=== PATIENT | female | born 1965 | race African-American/Black ===

== ENCOUNTER 2021-12-13 11:02 | Inpatient (IN) | payer BC, OTHER ==
[~2021-12-13] VITALS: Ht 165.1 cm; Wt 61.4 kg
[2021-12-13] MEDS ORDERED: ONDANSETRON PF 4 MG/2 ML VIAL. IVP ONE (14:00)
[2021-12-13] MEDS ORDERED: FAMOTIDINE 20 MG/2 ML VIAL IVP ONE (14:00)
[2021-12-13] MEDS ORDERED: IV NORMAL SALINE 1000ML BAG 1,000 ML IV ONE ×2 (14:00→20:15)
[2021-12-13] MEDS ORDERED: IOHEXOL 300 MG/ML 100ML VIAL. IV ONE (14:15)
[2021-12-13] MEDS: fentaNYL PF VIAL 100 MCG/2 ML VIAL IV PRN ×2 (14:27→16:00)
[2021-12-13] MEDS ORDERED: CONTRAST GIVEN. MC PRN (14:30)
[2021-12-13 14:36] LABS: BASO # 0.1 x10^3/uL (0.0-0.2); BASO % 0 % (0-3); EOS % 0 % (0-3); HEMATOCRIT 37.5 % (36.0-47.0); HEMOGLOBIN 12.5 g/dL (12.0-15.5); LYMPH # 0.5 x10^3/uL (1.0-4.8); LYMPH % 3 % (24-48); MEAN CORPUSCULAR HEMOGLOBIN 28 pg (25-35); MEAN CORPUSCULAR HGB CONC 33 g/dL (31-37); MEAN CORPUSCULAR VOLUME 84 fL (79-100); MONO # 1.4 x10^3/uL (0.0-1.1); MONO % 7 % (0-9); NEUT # 17.2 x10^3/uL (1.8-7.7); NEUT % 90 % (31-73); PLATELET COUNT 125 x10^3/uL (140-400); RED BLOOD COUNT 4.44 x10^6/uL (3.50-5.40); RED CELL DISTRIBUTION WIDTH 13.5 % (11.5-14.5); WHITE BLOOD COUNT 19.1 x10^3/uL (4.0-11.0)
[2021-12-13 14:43] LABS: BARBITURATES NEG (NEG); BENZODIAZEPINES NEG (NEG); CANNABINOIDS POS (NEG); COCAINE NEG (NEG); METHADONE NEG (NEG); OPIATES NEG (NEG); PHENCYCLIDINE NEG (NEG)
[2021-12-13 14:44] LABS: AMPHETAMINE/METHAMPHETAMINE NEG (NEG)
[2021-12-13 14:48] LABS: BACTERIA,URINE MODERATE /HPF (0-FEW); WBC,URINE TNTC /HPF (0-4)
[2021-12-13 14:50] LABS: INFLUENZA A PATIENT NEGATIVE (NEGATIVE); INFLUENZA B PATIENT NEGATIVE (NEGATIVE)
[2021-12-13 15:14] LABS: % BANDS 11 % (0-9); % LYMPHS 2 % (24-48); % MONOS 4 % (0-10); % SEGS 83 % (35-66)
[2021-12-13 15:15] LABS: PLT ESTIMATE DECREASED (ADEQUATE); TOXIC VACUOLATION SLIGHT
[2021-12-13 15:33] LABS: CALCIUM 9.5 mg/dL (8.5-10.1); CREATININE 1.1 mg/dL (0.6-1.0); GFR 62.2; POTASSIUM 3.2 mmol/L (3.5-5.1)
[2021-12-13 15:42] LABS: ALBUMIN 3.5 g/dL (3.4-5.0); ALBUMIN/GLOBULIN RATIO 0.7 (1.0-1.7); MAGNESIUM 1.7 mg/dL (1.8-2.4); TOTAL BILIRUBIN 1.5 mg/dL (0.2-1.0); TOTAL PROTEIN 8.2 g/dL (6.4-8.2)
--- NOTE | 2021-12-13 16:21 | RAD ---
EXAMINATION: CT ABDOMEN+PELVIS W CLINICAL HISTORY: n/v/d/abd pain. TECHNIQUE: CT of the abdomen and pelvis was performed using standard technique, scanning from just ab ove the dome of the diaphragm to the symphysis pubis following administration of intravenous contrast . CT Dose Reduction Employed: One or more of the following individualized dose reduction techniques wer e utilized for this examination: 1. Automated exposure control 2. Adjustment of the mA and/or kV ac cording to patient size 3. Use of iterative reconstruction technique. COMPARISON: None FINDINGS: Bibasilar subsegmental atelectasis and/or scarring. Bibasilar old calcified granulomas. Subcentimeter subcapsular hypoenhancing lesion in the anterior medial left hepatic lobe, too small ad equately characterize. Multiple calcifications in the spleen likely related to old granulomatous dise ase. 2.5 cm right adrenal lesion, incompletely evaluated. Gallbladder and pancreas unremarkable. Left renal edema with asymmetric hypoenhancement in the mid and lower poles of the kidney and mild pe rinephric stranding, suspicious for pyelonephritis. Subcentimeter hypoenhancing lesion in the lower p ole the left kidney, too small to adequately characterize. Right kidney unremarkable. Moderately filled urinary bladder. Uterus and ovaries unremarkable on limited evaluation. Questionable poorly visualized appendix at upper limits of normal in size measuring 7 mm in diameter. Ill-defined mesenteric stranding present on the right lower quadrant. Acute appendicitis is thought to be unlikely but cannot be excluded. No bowel dilation or definite wall thickening. Arterial atherosclerotic calcification without aneurysm. Degenerative disc disease greatest at T11-T12 and L5-S1. Multiple nodular densities in the bilateral breasts, the largest of which is partially visualized in the medial right breast and measures up to 2 .1 cm. IMPRESSION: Findings suspicious for left-sided pyelonephritis, correlate clinically. Concomitant acute appendicitis considered unlikely but not excluded. 2.5 cm right adrenal lesion, possibly a benign adenoma but incompletely evaluated. Nonemergent/outpat ient adrenal protocol CT/MRI abdomen with and without intravenous contrast could be obtained for furt her evaluation as indicated. Multiple bilateral breast masses as described, recommend comparison with prior mammograms if availabl e or follow-up bilateral diagnostic mammogram if the patient has not received a screening mammogram i n the past year. Electronically signed by: Juan Horan DO (12/13/2021 4:19 PM) [facility]
[2021-12-13] MEDS ORDERED: cefTRIAXone IV Push 1 GM VIAL. IVP ONE (16:30)
--- NOTE | 2021-12-13 19:09 | PDOC1 ---
History and Physical Date of Admission Date of Admission DATE: 12/13/21 TIME: 19:08 Identification/Chief Complaint Chief Complaint Abdominal pain Source Source: Patient History of Present Illness History of Present Illness Ms Stout is a 56yo female with no PMHx who comes to ED c/o left sided abdominal pain, nausea, vomiting and diarrhea. She has had cramping and sharp left flank pain radiating occasionally into her groin for the past 2 days. She has associated nausea and over the past 24 hours had 2 bouts of emesis and has been having diarrhea as well. She c/o dysuria and subjective fever/chills. Labs with WBC 19.1, Hb 12.5, platelets 125, NA 136, K3.2, BUN 13, CR 1.1, glucose 125, calcium 9.5, magnesium 1.7, bilirubin 1.5, AST 25, ALT 22, alkaline phosphatase 93, albumin 3.5, lipase 21, high-sensitivity troponins were 11 and 14, NT proBNP 629, urinalysis large leuk esterase, a UDS positive for cannabinoids, rapid COVID-19 negative, rapid influenza negative. CT abdomen pelvis concerning for left-sided pyelonephritis and 2.5 cm right adrenal lesion Noted as well as multiple bilateral breast masses. Past Medical History Cardiovascular: No pertinent hx Past Surgical History Past Surgical History: No pertinent history Family History Family History: High Cholestrol Social History Smoke: Quit ALCOHOL: none Drugs: Marijuana Current Medications Current Medications Current Medications Sodium Chloride 1,000 ml @ 1,000 mls/hr 1X ONCE IV Last administered on 12/13/21at 14:26; Start 12/13/21 at 14:00; Stop 12/13/21 at 14:59; Status DC Ondansetron HCl (Zofran) 4 mg 1X ONCE IVP Last administered on 12/13/21at 14:26; Start 12/13/21 at 14:00; Stop 12/13/21 at 14:18; Status DC Famotidine (Pepcid Vial) 20 mg 1X ONCE IVP Last administered on 12/13/21at 14:26; Start 12/13/21 at 14:00; Stop 12/13/21 at 14:18; Status DC Fentanyl Citrate (Fentanyl 2ml Vial) 50 mcg PRN Q15MIN PRN IV PAIN GREATER THAN 3/10 Last administered on 12/13/21at 16:00; Start 12/13/21 at 14:00; Stop 12/14/21 at 13:59 Iohexol (Omnipaque 300 Mg/ml) 75 ml 1X ONCE IV Last administered on 12/13/21at 15:50; Start 12/13/21 at 14:15; Stop 12/13/21 at 14:18; Status DC Info (CONTRAST GIVEN -- Rx MONITORING) 1 each PRN DAILY PRN MC SEE COMMENTS; Start 12/13/21 at 14:30; Stop 12/15/21 at 14:29 Ceftriaxone Sodium (Rocephin) 1 gm 1X ONCE IVP Last administered on 12/13/21at 17:01; Start 12/13/21 at 16:30; Stop 12/13/21 at 16:31; Status DC Magnesium Sulfate 50 ml @ 25 mls/hr 1X ONCE IV ; Start 12/13/21 at 19:30; Stop 12/13/21 at 21:29 Potassium Chloride/Dextrose/ Sod Cl 1,000 ml @ 125 mls/hr Q8H IV ; Start 12/13/21 at 19:30; Stop 12/14/21 at 03:29 Allergies Allergies: Coded Allergies: No Known Drug Allergies (Unverified , 12/13/21) ROS General: YES: Chills, Fatigue, Malaise, Appetite; No: Night Sweats, Other PSYCHOLOGICAL ROS: No: Anxiety, Behavioral Disorder, Concentration difficultie, Decreased libido, Depression, Disorientation, Hallucinations, Hostility, Irritablity, Memory difficulties, Mood Swings, Obsessive thoughts, Physical abus e, Sexual abuse, Sleep disturbances, Suicidal ideation, Other Eyes: No Blurry vision, No Decreased vision, No Double vision, No Dry eyes, No Excessive tearing, No Eye Pain, No Itchy Eyes, No Loss of vision, No Photophobia, No Scotomata, No Uses contacts, No Uses glasses, No Other HEENT: No: Heacaches, Visual Changes, Hearing change, Nasal congestion, Nasal discharge, Oral lesions, Sinus pain, Sore Throat, Epistaxis, Sneezing, Snoring, Tinnitus, Vertigo, Vocal changes, Other ALLERGY AND IMMUNOLOGY: No: Hives, Insect Bite Sensitivity, Itchy/Watery Eyes, Nasal Congestion, Post Nasal Drip, Seasonal Allergies, Other Hematological and Lymphatic: No: Bleeding Problems, Blood Clots, Blood Transfusions, Brusing, Night Sweats, Pallor, Swollen Lymph Nodes, Other ENDOCRINE: No: Breast Changes, Galactorrhea, Hair Pattern Changes, Hot Flashes, Malaise/lethargy, Mood Swings, Palpitations, Polydipsia/polyuria, Skin Changes, Temperature Intolerance, Unexpected Weight Changes, Other Breast: No New/Changing Breast Lumps, No Nipple changes, No Nipple discharge, No Other Respiratory: No: Cough, Hemoptysis, Orthopnea, Pleuritic Pain, Shortness of breath, SOB with excertion, Sputum Changes, Stridor, Tachypnea, Wheezing, Other Cardiovascular: No Chest Pain, No Palpitations, No Orthopnea, No Paroxysmal Noc. Dyspnea, No Edema, No Lt Headedness, No Other Gastrointestinal: Yes Nausea, Yes Vomiting, Yes Abdominal Pain, Yes Diarrhea Genitourinary: YES Dysuria, YES Frequency, YES Urgency, YES Flank Pain; No Incontinence, No Hematuria, No Retention, No Discharge, No Pain, No Other, No , No , No , No , No , No , No Musculoskeletal: No Gait Disturbance, No Joint Pain, No Joint Stiffness, No Joint Swelling, No Muscle Pain, No Muscular Weakness, No Pain In:, No Swelling In:, No Other Neurological: No Behavorial Changes, No Bowel/Bladder ControlChng, No Confusion, No Dizziness, No Gait Disturbance, No Headaches, No Impaired Coord/balance, No Memory Loss, No Numbness/Tingling, No Seizures, No Speech Problems, No Tremors, No Visual Changes, No Weakness, No Other Skin: No Dry Skin, No Eczema, No Hair Changes, No Lumps, No Mole Changes, No Mottling, No Nail Changes, No Pruritus, No Rash, No Skin Lesion Changes, No Other, No Acne Physical Exam General: Alert, Oriented X3, Cooperative, moderate distress HEENT: Atraumatic, PERRLA, EOMI, Mucous membr. moist/pink Lungs: Clear to auscultation, Normal air movement Heart: S1S2, RRR, no thrills, no rubs, no gallops, no murmurs Abdomen: Normal bowel sounds, Other (left flank tenderness) Rectal Exam: not examined Extremities: No clubbing, No cyanosis, No edema, Normal pulses, No tenderness/swelling Skin: No rashes, No breakdown, No significant lesion Neuro: Normal gait, Normal speech, Strength at 5/5 X4 ext, Normal tone, Sensation intact, Cranial nerves 3-12 NL, Reflexes 2+ Psych/Mental Status: Mental status NL, Mood NL Vitals Vitals Vital Signs Date Time Temp Pulse Resp B/P (MAP) Pulse Ox O2 Delivery O2 Flow Rate FiO2 12/13/21 16:30 20 96 Room Air 12/13/21 14:55 94 132/82 (99) 12/13/21 13:18 99.2 99.2 Labs Labs Laboratory Tests Test 12/13/21 14:10 12/13/21 14:16 12/13/21 15:09 12/13/21 18:01 Urine Collection Type Unknown Urine Color (Auto) Light orange Urine Turbidity Turbid Urine pH (Auto) 6.0 (<5.0-8.0) Urine Specific [place] 1.014 (1.000-1.030) Urine Protein (Auto) 100 mg/dL (Negative) Urine Glucose (Auto)(UA) Negative mg/dL (Negative) Urine Ketones (Auto) 10 mg/dL (Negative) Urine Blood (Auto) Moderate (Negative) Urine Nitrite Negative (Negative) Urine Bilirubin (Auto) Negative (Negative) Urine Urobilinogen (Auto) 3 mg/dL (Normal) Urine Leukocyte Esterase (Auto) Large (Negative) Urine RBC 11-20 /HPF (0-2) Urine WBC Tntc /HPF (0-4) Urine Squamous Epithelial Cells Few /LPF Urine Bacteria Moderate /HPF (0-FEW) Urine Opiates Screen Neg (NEG) Urine Methadone Screen Neg (NEG) Urine Barbiturates Neg (NEG) Urine Phencyclidine Screen Neg (NEG) Urine Amphetamine/Methamphetamine Neg (NEG) Urine Benzodiazepines Screen Neg (NEG) Urine Cocaine Screen Neg (NEG) Urine Cannabinoids Screen Pos (NEG) Urine Ethyl Alcohol Neg (NEG) Influenza Type A Antigen Negative (NEGATIVE) Influenza Type B Antigen Negative (NEGATIVE) SARS-CoV-2 Antigen (Rapid) Negative (NEGATIVE) White Blood Count 19.1 x10^3/uL (4.0-11.0) Red Blood Count 4.44 x10^6/uL (3.50-5.40) Hemoglobin 12.5 g/dL (12.0-15.5) Hematocrit 37.5 % (36.0-47.0) Mean Corpuscular Volume 84 fL (79-100) Mean Corpuscular Hemoglobin 28 pg (25-35) Mean Corpuscular Hemoglobin Concent 33 g/dL (31-37) Red Cell Distribution Width 13.5 % (11.5-14.5) Platelet Count 125 x10^3/uL (140-400) Neutrophils (%) (Auto) 90 % (31-73) Lymphocytes (%) (Auto) 3 % (24-48) Monocytes (%) (Auto) 7 % (0-9) Eosinophils (%) (Auto) 0 % (0-3) Basophils (%) (Auto) 0 % (0-3) Neutrophils # (Auto) 17.2 x10^3/uL (1.8-7.7) Lymphocytes # (Auto) 0.5 x10^3/uL (1.0-4.8) Monocytes # (Auto) 1.4 x10^3/uL (0.0-1.1) Eosinophils # (Auto) 0.0 x10^3/uL (0.0-0.7) Basophils # (Auto) 0.1 x10^3/uL (0.0-0.2) Segmented Neutrophils % 83 % (35-66) Band Neutrophils % 11 % (0-9) Lymphocytes % 2 % (24-48) Monocytes % 4 % (0-10) Toxic Vacuolation Slight Platelet Estimate Decreased (ADEQUATE) Sodium Level 136 mmol/L (136-145) Potassium Level 3.2 mmol/L (3.5-5.1) Chloride Level 101 mmol/L (98-107) Carbon Dioxide Level 22 mmol/L (21-32) Anion Gap 13 (6-14) Blood Urea Nitrogen 13 mg/dL (7-20) Creatinine 1.1 mg/dL (0.6-1.0) Estimated GFR (Cockcroft-Gault) 62.2 BUN/Creatinine Ratio 12 (6-20) Glucose Level 125 mg/dL (70-99) Calcium Level 9.5 mg/dL (8.5-10.1) Magnesium Level 1.7 mg/dL (1.8-2.4) Total Bilirubin 1.5 mg/dL (0.2-1.0) Aspartate Amino Transf (AST/SGOT) 25 U/L (15-37) Alanine Aminotransferase (ALT/SGPT) 22 U/L (14-59) Alkaline Phosphatase 93 U/L (46-116) Troponin I High Sensitivity 11 ng/L (4-50) 14 ng/L (4-50) CR-Hyz-Q-Type Natriuretic Peptide 629 pg/mL (0-124) Total Protein 8.2 g/dL (6.4-8.2) Albumin 3.5 g/dL (3.4-5.0) Albumin/Globulin Ratio 0.7 (1.0-1.7) Lipase 21 U/L (73-393) Ethyl Alcohol Level < 10 mg/dL (0-10) Laboratory Tests Test 12/13/21 14:10 12/13/21 14:16 12/13/21 15:09 12/13/21 18:01 Urine Collection Type Unknown Urine Color (Auto) Light orange Urine Turbidity Turbid Urine pH (Auto) 6.0 (<5.0-8.0) Urine Specific [place] 1.014 (1.000-1.030) Urine Protein (Auto) 100 mg/dL (Negative) Urine Glucose (Auto)(UA) Negative mg/dL (Negative) Urine Ketones (Auto) 10 mg/dL (Negative) Urine Blood (Auto) Moderate (Negative) Urine Nitrite Negative (Negative) Urine Bilirubin (Auto) Negative (Negative) Urine Urobilinogen (Auto) 3 mg/dL (Normal) Urine Leukocyte Esterase (Auto) Large (Negative) Urine RBC 11-20 /HPF (0-2) Urine WBC Tntc /HPF (0-4) Urine Squamous Epithelial Cells Few /LPF Urine Bacteria Moderate /HPF (0-FEW) Urine Opiates Screen Neg (NEG) Urine Methadone Screen Neg (NEG) Urine Barbiturates Neg (NEG) Urine Phencyclidine Screen Neg (NEG) Urine Amphetamine/Methamphetamine Neg (NEG) Urine Benzodiazepines Screen Neg (NEG) Urine Cocaine Screen Neg (NEG) Urine Cannabinoids Screen Pos (NEG) Urine Ethyl Alcohol Neg (NEG) Influenza Type A Antigen Negative (NEGATIVE) Influenza Type B Antigen Negative (NEGATIVE) SARS-CoV-2 Antigen (Rapid) Negative (NEGATIVE) White Blood Count 19.1 x10^3/uL (4.0-11.0) Red Blood Count 4.44 x10^6/uL (3.50-5.40) Hemoglobin 12.5 g/dL (12.0-15.5) Hematocrit 37.5 % (36.0-47.0) Mean Corpuscular Volume 84 fL (79-100) Mean Corpuscular Hemoglobin 28 pg (25-35) Mean Corpuscular Hemoglobin Concent 33 g/dL (31-37) Red Cell Distribution Width 13.5 % (11.5-14.5) Platelet Count 125 x10^3/uL (140-400) Neutrophils (%) (Auto) 90 % (31-73) Lymphocytes (%) (Auto) 3 % (24-48) Monocytes (%) (Auto) 7 % (0-9) Eosinophils (%) (Auto) 0 % (0-3) Basophils (%) (Auto) 0 % (0-3) Neutrophils # (Auto) 17.2 x10^3/uL (1.8-7.7) Lymphocytes # (Auto) 0.5 x10^3/uL (1.0-4.8) Monocytes # (Auto) 1.4 x10^3/uL (0.0-1.1) Eosinophils # (Auto) 0.0 x10^3/uL (0.0-0.7) Basophils # (Auto) 0.1 x10^3/uL (0.0-0.2) Segmented Neutrophils % 83 % (35-66) Band Neutrophils % 11 % (0-9) Lymphocytes % 2 % (24-48) Monocytes % 4 % (0-10) Toxic Vacuolation Slight Platelet Estimate Decreased (ADEQUATE) Sodium Level 136 mmol/L (136-145) Potassium Level 3.2 mmol/L (3.5-5.1) Chloride Level 101 mmol/L (98-107) Carbon Dioxide Level 22 mmol/L (21-32) Anion Gap 13 (6-14) Blood Urea Nitrogen 13 mg/dL (7-20) Creatinine 1.1 mg/dL (0.6-1.0) Estimated GFR (Cockcroft-Gault) 62.2 BUN/Creatinine Ratio 12 (6-20) Glucose Level 125 mg/dL (70-99) Calcium Level 9.5 mg/dL (8.5-10.1) Magnesium Level 1.7 mg/dL (1.8-2.4) Total Bilirubin 1.5 mg/dL (0.2-1.0) Aspartate Amino Transf (AST/SGOT) 25 U/L (15-37) Alanine Aminotransferase (ALT/SGPT) 22 U/L (14-59) Alkaline Phosphatase 93 U/L (46-116) Troponin I High Sensitivity 11 ng/L (4-50) 14 ng/L (4-50) OD-Ukz-V-Type Natriuretic Peptide 629 pg/mL (0-124) Total Protein 8.2 g/dL (6.4-8.2) Albumin 3.5 g/dL (3.4-5.0) Albumin/Globulin Ratio 0.7 (1.0-1.7) Lipase 21 U/L (73-393) Ethyl Alcohol Level < 10 mg/dL (0-10) VTE Prophylaxis Ordered VTE Prophylaxis Devices: Yes VTE Pharmacological Prophylaxi: No Assessment/Plan Assessment/Plan Left pyelonephritis - IV rocephin, toradol, morphine for pain, aggressive IVF Sepsis - related to pyelo. empiric rocephin, IVF, trend WBC N/V/D - likely related to sepsis. no pain in right lower quadrant, does not appear to have gastroenteritis or appendicitis Hypokalemia - related to above, will replace IV Thrombocytopenia - likely sepsis related, will trend Abnormal breast masses - known outpatient, has outpatient breast ultrasound for densities FEN - Regular diet PPX - ambulatory FULL CODE Dispo - inpatient Justifications for Admission Other Justification ELAYNE MCGRAW MD December 13, 2021 19:08
[2021-12-13] MEDS ORDERED: POTASSIUM CL 20MEQ D5-0.45NACL 1,000 ML IV SCH (19:30)
[2021-12-13] MEDS ORDERED: MAGNESIUM SULFATE 2GM 50 ML IV ONE (19:30)
[2021-12-13] MEDS ORDERED: ACETAMINOPHEN 325 MG TABLET. PO PRN (20:15)
[2021-12-13] MEDS ORDERED: ONDANSETRON PF 4 MG/2 ML VIAL. IVP PRN (20:15)
[2021-12-13] MEDS ORDERED: MORPHINE SULFATE 4 MG/ML INJ. IVP PRN (20:15)
[2021-12-13 20:50] VITALS: BP 113/71
--- NOTE | 2021-12-14 01:16 | PHYS DOC ---
Past Medical History Additional Past Medical Histor: denies hx Past Surgical History: No Surgical History Additional Past Surgical Histo: denies hx Smoking Status: Former Smoker Alcohol Use: None General Adult EDM: Chief Complaint: FLU SYMPTOM HPI: HPI: Patient is a 56 year old female with no significant medical history presented to the ED today complaining of nausea, vomiting, mild left flank pain, symptoms of been going on for 3 days. Patient denies any fever but reports some body aches. Review of Systems: Review of Systems: Constitutional: Denies fever or chills. [] Eyes: Denies change in visual acuity. [] HENT: Denies nasal congestion or sore throat. [] Respiratory: Denies cough or shortness of breath. [] Cardiovascular: Denies chest pain or edema. [] GI: Reports nausea and vomiting. Denies abdominal pain, bloody stools or diarrhea. [] : Reports left flank pain Musculoskeletal: Denies back pain or joint pain. [] Integument: Denies rash. [] Neurologic: Denies headache, focal weakness or sensory changes. [] Psychiatric: Denies depression or anxiety. [] Heart Score: C/O Chest Pain: N/A Risk Factors: Risk Factors: DM, Current or recent (<one month) smoker, HTN, HLP, family history of CAD, obesity. Risk Scores: Score 0 - 3: 2.5% MACE over next 6 weeks - Discharge Home Score 4 - 6: 20.3% MACE over next 6 weeks - Admit for Clinical Observation Score 7 - 10: 72.7% MACE over next 6 weeks - Early Invasive Strategies Current Medications: Current Medications Medications (Trade) Dose Ordered Sig/Paulino Start Time Stop Time Status Last Admin Dose Admin Ceftriaxone Sodium (Rocephin) 1 gm 1X ONCE 12/13/21 16:30 12/13/21 16:31 DC 12/13/21 17:01 1 GM Famotidine (Pepcid Vial) 20 mg 1X ONCE 12/13/21 14:00 12/13/21 14:18 DC 12/13/21 14:26 20 MG Fentanyl Citrate (Fentanyl 2ml Vial) 50 mcg PRN Q15MIN PRN 12/13/21 14:00 12/14/21 13:59 12/13/21 16:00 50 MCG Info (CONTRAST GIVEN -- Rx MONITORING) 1 each PRN DAILY PRN 12/13/21 14:30 12/15/21 14:29 Iohexol (Omnipaque 300 Mg/ml) 75 ml 1X ONCE 12/13/21 14:15 12/13/21 14:18 DC 12/13/21 15:50 75 ML Magnesium Sulfate 50 ml @ 25 mls/hr 1X ONCE 12/13/21 19:30 12/13/21 21:29 DC 12/13/21 19:27 25 MLS/HR Ondansetron HCl (Zofran) 4 mg 1X ONCE 12/13/21 14:00 12/13/21 14:18 DC 12/13/21 14:26 4 MG Potassium Chloride/Dextrose/ Sod Cl 1,000 ml @ 125 mls/hr Q8H 12/13/21 19:30 12/14/21 03:29 12/13/21 19:22 125 MLS/HR Sodium Chloride 1,000 ml @ 1,000 mls/hr 1X ONCE 12/13/21 14:00 12/13/21 14:59 DC 12/13/21 14:26 1,000 MLS/HR Allergies: Allergies: Allergies Coded Allergies Type Severity Reaction Last Updated Verified No Known Drug Allergies 12/13/21 No Physical Exam: PE: Constitutional: Well developed, well nourished, no acute distress, non-toxic appearance. [] HENT: Normocephalic, atraumatic, bilateral external ears normal, oropharynx dry, chapped lips, no oral exudates, nose normal. [] Eyes: PERRLA, EOMI, conjunctiva normal, no discharge. [] Neck: Normal range of motion, no tenderness, supple, no stridor. [] Cardiovascular:Heart rate regular rhythm, no murmur [] Lungs & Thorax: Bilateral breath sounds clear to auscultation [] Abdomen: Bowel sounds normal, soft, no tenderness, no masses, no pulsatile masses. [] Skin: Warm, dry, no erythema, no rash. [] Back: No tenderness, no CVA tenderness. [] Extremities: No tenderness, no cyanosis, no clubbing, ROM intact, no edema. [] Neurologic: Alert and oriented X 3, normal motor function, normal sensory function, no focal deficits noted. [] Psychologic: Affect normal, judgement normal, mood normal. [] Current Patient Data: Labs: Laboratory Tests Test 12/13/21 14:10 12/13/21 14:16 12/13/21 15:09 12/13/21 18:01 Urine Collection Type Unknown Urine Color (Auto) Light orange Urine Turbidity Turbid Urine pH (Auto) 6.0 (<5.0-8.0) Urine Specific [place] 1.014 (1.000-1.030) Urine Protein (Auto) 100 mg/dL (Negative) Urine Glucose (Auto)(UA) Negative mg/dL (Negative) Urine Ketones (Auto) 10 mg/dL (Negative) Urine Blood (Auto) Moderate (Negative) Urine Nitrite Negative (Negative) Urine Bilirubin (Auto) Negative (Negative) Urine Urobilinogen (Auto) 3 mg/dL (Normal) Urine Leukocyte Esterase (Auto) Large (Negative) Urine RBC 11-20 /HPF (0-2) Urine WBC Tntc /HPF (0-4) Urine Squamous Epithelial Cells Few /LPF Urine Bacteria Moderate /HPF (0-FEW) Urine Opiates Screen Neg (NEG) Urine Methadone Screen Neg (NEG) Urine Barbiturates Neg (NEG) Urine Phencyclidine Screen Neg (NEG) Urine Amphetamine/Methamphetamine Neg (NEG) Urine Benzodiazepines Screen Neg (NEG) Urine Cocaine Screen Neg (NEG) Urine Cannabinoids Screen Pos (NEG) Urine Ethyl Alcohol Neg (NEG) Influenza Type A Antigen Negative (NEGATIVE) Influenza Type B Antigen Negative (NEGATIVE) SARS-CoV-2 Antigen (Rapid) Negative (NEGATIVE) White Blood Count 19.1 x10^3/uL (4.0-11.0) H Red Blood Count 4.44 x10^6/uL (3.50-5.40) Hemoglobin 12.5 g/dL (12.0-15.5) Hematocrit 37.5 % (36.0-47.0) Mean Corpuscular Volume 84 fL (79-100) Mean Corpuscular Hemoglobin 28 pg (25-35) Mean Corpuscular Hemoglobin Concent 33 g/dL (31-37) Red Cell Distribution Width 13.5 % (11.5-14.5) Platelet Count 125 x10^3/uL (140-400) L Neutrophils (%) (Auto) 90 % (31-73) H Lymphocytes (%) (Auto) 3 % (24-48) L Monocytes (%) (Auto) 7 % (0-9) Eosinophils (%) (Auto) 0 % (0-3) Basophils (%) (Auto) 0 % (0-3) Neutrophils # (Auto) 17.2 x10^3/uL (1.8-7.7) H Lymphocytes # (Auto) 0.5 x10^3/uL (1.0-4.8) L Monocytes # (Auto) 1.4 x10^3/uL (0.0-1.1) H Eosinophils # (Auto) 0.0 x10^3/uL (0.0-0.7) Basophils # (Auto) 0.1 x10^3/uL (0.0-0.2) Segmented Neutrophils % 83 % (35-66) H Band Neutrophils % 11 % (0-9) H Lymphocytes % 2 % (24-48) L Monocytes % 4 % (0-10) Toxic Vacuolation Slight Platelet Estimate Decreased (ADEQUATE) Sodium Level 136 mmol/L (136-145) Potassium Level 3.2 mmol/L (3.5-5.1) L Chloride Level 101 mmol/L (98-107) Carbon Dioxide Level 22 mmol/L (21-32) Anion Gap 13 (6-14) Blood Urea Nitrogen 13 mg/dL (7-20) Creatinine 1.1 mg/dL (0.6-1.0) H Estimated GFR (Cockcroft-Gault) 62.2 BUN/Creatinine Ratio 12 (6-20) Glucose Level 125 mg/dL (70-99) H Calcium Level 9.5 mg/dL (8.5-10.1) Magnesium Level 1.7 mg/dL (1.8-2.4) L Total Bilirubin 1.5 mg/dL (0.2-1.0) H Aspartate Amino Transferase (AST) 25 U/L (15-37) Alanine Aminotransferase (ALT) 22 U/L (14-59) Alkaline Phosphatase 93 U/L (46-116) Troponin I High Sensitivity 11 ng/L (4-50) 14 ng/L (4-50) CT-Xau-Y-Type Natriuretic Peptide 629 pg/mL (0-124) H Total Protein 8.2 g/dL (6.4-8.2) Albumin 3.5 g/dL (3.4-5.0) Albumin/Globulin Ratio 0.7 (1.0-1.7) L Lipase 21 U/L (73-393) L Ethyl Alcohol Level < 10 mg/dL (0-10) Test 12/13/21 21:20 Troponin I High Sensitivity 18 ng/L (4-50) Laboratory Tests 12/13/21 14:16 Laboratory Tests 12/13/21 15:09 Vital Signs: Vital Signs Date Time Temp Pulse Resp B/P (MAP) Pulse Ox O2 Delivery O2 Flow Rate FiO2 12/13/21 20:50 98.9 83 14 113/71 (85) 95 Room Air 98.9 EKG: EKG: [] Radiology/Procedures: Radiology/Procedures: []PROCEDURE: CT ABD PELV W/ IV CONTRST ONLY EXAMINATION: CT ABDOMEN+PELVIS W CLINICAL HISTORY: n/v/d/abd pain. TECHNIQUE: CT of the abdomen and pelvis was performed using standard technique, scanning from just above the dome of the diaphragm to the symphysis pubis following administration of intravenous contrast. CT Dose Reduction Employed: One or more of the following individualized dose reduction techniques were utilized for this examination: 1. Automated exposure control 2. Adjustment of the mA and/or kV according to patient size 3. Use of iterative reconstruction technique. COMPARISON: None FINDINGS: Bibasilar subsegmental atelectasis and/or scarring. Bibasilar old calcified granulomas. Subcentimeter subcapsular hypoenhancing lesion in the anterior medial left hepatic lobe, too small adequately characterize. Multiple calcifications in the spleen likely related to old granulomatous disease. 2.5 cm right adrenal lesion, incompletely evaluated. Gallbladder and pancreas unremarkable. Left renal edema with asymmetric hypoenhancement in the mid and lower poles of the kidney and mild perinephric stranding, suspicious for pyelonephritis. Subcentimeter hypoenhancing lesion in the lower pole the left kidney, too small to adequately characterize. Right kidney unremarkable. Moderately filled urinary bladder. Uterus and ovaries unremarkable on limited evaluation. Questionable poorly visualized appendix at upper limits of normal in size measuring 7 mm in diameter. Ill-defined mesenteric stranding present on the right lower quadrant. Acute appendicitis is thought to be unlikely but cannot be excluded. No bowel dilation or definite wall thickening. Arterial atherosclerotic calcification without aneurysm. Degenerative disc disease greatest at T11-T12 and L5-S1. Multiple nodular densities in the bilateral breasts, the largest of which is partially visualized in the medial right breast and measures up to 2.1 cm. IMPRESSION: Findings suspicious for left-sided pyelonephritis, correlate clinically. Concomitant acute appendicitis considered unlikely but not excluded. 2.5 cm right adrenal lesion, possibly a benign adenoma but incompletely evaluated. Nonemergent/outpatient adrenal protocol CT/MRI abdomen with and without intravenous contrast could be obtained for further evaluation as indicated. Multiple bilateral breast masses as described, recommend comparison with prior mammograms if available or follow-up bilateral diagnostic mammogram if the patient has not received a screening mammogram in the past year. Electronically signed by: Juan Kimble DO (12/13/2021 4:19 PM) [facility] DICTATED and SIGNED BY: JUAN KIMBLE DO DATE: 12/13/211558 Course & Med Decision Making: Course & Med Decision Making Pertinent Labs and Imaging studies reviewed. (See chart for details) This a 56-year-old female patient presenting to the ED today with complaints of nausea, vomiting, flank pain, symptoms began 3 days ago. Vitals on arrival to the ED temperature 99.2, heart rate 95, respiration 24 room air, blood pressure 102/87, O2 sats 99 200% on room air. CBC with a WBC of 19.1 with a left shift and bandemia, platelet count 125. CMP with potassium of 3.2. Urine noted for large amount of leukocytes, 11-[address] of the abdomen and pelvis noted for acute pyelonephritis on the left. CT also states they could not rule out appendicitis. I did speak to the general surgeon, patient does not have abdominal pain. He will follow-up with patient in a.m. Patient was given IV fluids in the ED started on Rocephin. Spoke with Dr. Germain who accepted patient for admission Beto Disclaimer: Beto Disclaimer: This electronic medical record was generated, in whole or in part, using a voice recognition dictation system. Date and Time of Reassessment Date: December 13, 2021 Time: 17:00 Fluid Challenge Is the fluid challenge complet: No IBW Target Volume Used: No BMI > 30: No Vital Signs Vital Signs: Vital Signs Date Time Temp Pulse Resp B/P (MAP) Pulse Ox O2 Delivery O2 Flow Rate FiO2 12/13/21 20:50 98.9 83 14 113/71 (85) 95 Room Air 98.9 Temperature Source: Oral Respirations Respiratory Effort: Normal Respiratory Pattern: Irregular Cardiovascular Pulse Rhythm: Regular Heart: Nml rate, reg. rhythm Lung Sounds Breath Sounds: Clear Capillary Refil Capillary Refill: Rt Hand > 3 seconds Peripheral Pulse Pulse Location: Monitor Pulse Strength: Normal (2+) Pulse Assessment Method: NIBP Integumentary Skin: Warm Skin Moisture: Moist Skin Turgor: Normal Skin Color: warm Fingernail Color: WNL Departure Departure Impression: Primary Impression: Acute pyelonephritis Additional Impressions: Leukocytosis Qualified Codes: D72.829 - Elevated white blood cell count, unspecified Sepsis Qualified Codes: A41.9 - Sepsis, unspecified organism Nausea and vomiting Qualified Codes: R11.2 - Nausea with vomiting, unspecified Disposition: 09 ADMITTED INPATIENT Condition: STABLE Referrals: UNKNOWN PCP NAME (PCP) YNES TYSNO APRN December 14, 2021 01:16
[2021-12-14 03:09] VITALS: BP 118/77
[2021-12-14] MEDS ORDERED: ZIPRASIDONE IM 20 MG VIAL. IM PRN (04:15)
[2021-12-14 07:00] VITALS: BP_SYST 116; BP_SYST 152; BP_DIAS 70; BP_DIAS 82
[2021-12-14 07:51] LABS: BASO % 0 % (0-3); EOS % 0 % (0-3); HEMATOCRIT 35.8 % (36.0-47.0); HEMOGLOBIN 11.8 g/dL (12.0-15.5); LYMPH # 0.6 x10^3/uL (1.0-4.8); LYMPH % 4 % (24-48); MEAN CORPUSCULAR HEMOGLOBIN 28 pg (25-35); MEAN CORPUSCULAR HGB CONC 33 g/dL (31-37); MEAN CORPUSCULAR VOLUME 85 fL (79-100); MONO # 1.5 x10^3/uL (0.0-1.1); MONO % 10 % (0-9); NEUT # 12.9 x10^3/uL (1.8-7.7); NEUT % 86 % (31-73); PLATELET COUNT 104 x10^3/uL (140-400); RED BLOOD COUNT 4.23 x10^6/uL (3.50-5.40); RED CELL DISTRIBUTION WIDTH 13.7 % (11.5-14.5)
[2021-12-14 08:13] LABS: ALBUMIN/GLOBULIN RATIO 0.6 (1.0-1.7); CALCIUM 9.1 mg/dL (8.5-10.1); CREATININE 0.9 mg/dL (0.6-1.0); GFR 78.4; POTASSIUM 3.5 mmol/L (3.5-5.1); TOTAL PROTEIN 7.8 g/dL (6.4-8.2)
--- NOTE | 2021-12-14 08:51 | PDOC ---
[employer] PROGRESS NOTE Date of Service DOS: DATE: 12/14/21 TIME: 08:49 Chief Complaint Chief Complaint Pyelonephritis Sepsis Leukocytosis Nausea vomiting diarrhea Hypokalemia Thrombocytopenia History of breast mass (worked up as outpatient) History of Present Illness History of Present Illness 12/14/2021 Patient seen exam She is resting with no apparent distress did awake briefly Discussed with RN Chart reviewed Vitals/I&O Vitals/I&O: Vital Signs Date Time Temp Pulse Resp B/P (MAP) Pulse Ox O2 Delivery O2 Flow Rate FiO2 12/14/21 07:00 98.9 76 14 116/70 (85) 96 Room Air 98.9 I & O 12/13/21 12/13/21 12/14/21 15:00 23:00 07:00 Intake Total 1000 ml 450 ml Output Total 1 ml Balance 1000 ml 449 ml Physical Exam General: No acute distress Heart: Regular rate Abdomen: Normal bowel sounds, Other (left flank tenderness) Extremities: No clubbing, No cyanosis, No edema, Normal pulses, No tenderness/swelling Skin: No rashes, No breakdown, No significant lesion Labs Labs: Laboratory Tests Test 12/13/21 14:10 12/13/21 14:16 12/13/21 15:09 12/13/21 18:01 Urine Collection Type Unknown Urine Color (Auto) Light orange Urine Turbidity Turbid Urine pH (Auto) 6.0 (<5.0-8.0) Urine Specific [place] 1.014 (1.000-1.030) Urine Protein (Auto) 100 mg/dL (Negative) Urine Glucose (Auto)(UA) Negative mg/dL (Negative) Urine Ketones (Auto) 10 mg/dL (Negative) Urine Blood (Auto) Moderate (Negative) Urine Nitrite Negative (Negative) Urine Bilirubin (Auto) Negative (Negative) Urine Urobilinogen (Auto) 3 mg/dL (Normal) Urine Leukocyte Esterase (Auto) Large (Negative) Urine RBC 11-20 /HPF (0-2) Urine WBC Tntc /HPF (0-4) Urine Squamous Epithelial Cells Few /LPF Urine Bacteria Moderate /HPF (0-FEW) Urine Opiates Screen Neg (NEG) Urine Methadone Screen Neg (NEG) Urine Barbiturates Neg (NEG) Urine Phencyclidine Screen Neg (NEG) Urine Amphetamine/Methamphetamine Neg (NEG) Urine Benzodiazepines Screen Neg (NEG) Urine Cocaine Screen Neg (NEG) Urine Cannabinoids Screen Pos (NEG) Urine Ethyl Alcohol Neg (NEG) Influenza Type A Antigen Negative (NEGATIVE) Influenza Type B Antigen Negative (NEGATIVE) SARS-CoV-2 Antigen (Rapid) Negative (NEGATIVE) White Blood Count 19.1 x10^3/uL (4.0-11.0) Red Blood Count 4.44 x10^6/uL (3.50-5.40) Hemoglobin 12.5 g/dL (12.0-15.5) Hematocrit 37.5 % (36.0-47.0) Mean Corpuscular Volume 84 fL (79-100) Mean Corpuscular Hemoglobin 28 pg (25-35) Mean Corpuscular Hemoglobin Concent 33 g/dL (31-37) Red Cell Distribution Width 13.5 % (11.5-14.5) Platelet Count 125 x10^3/uL (140-400) Neutrophils (%) (Auto) 90 % (31-73) Lymphocytes (%) (Auto) 3 % (24-48) Monocytes (%) (Auto) 7 % (0-9) Eosinophils (%) (Auto) 0 % (0-3) Basophils (%) (Auto) 0 % (0-3) Neutrophils # (Auto) 17.2 x10^3/uL (1.8-7.7) Lymphocytes # (Auto) 0.5 x10^3/uL (1.0-4.8) Monocytes # (Auto) 1.4 x10^3/uL (0.0-1.1) Eosinophils # (Auto) 0.0 x10^3/uL (0.0-0.7) Basophils # (Auto) 0.1 x10^3/uL (0.0-0.2) Segmented Neutrophils % 83 % (35-66) Band Neutrophils % 11 % (0-9) Lymphocytes % 2 % (24-48) Monocytes % 4 % (0-10) Toxic Vacuolation Slight Platelet Estimate Decreased (ADEQUATE) Sodium Level 136 mmol/L (136-145) Potassium Level 3.2 mmol/L (3.5-5.1) Chloride Level 101 mmol/L (98-107) Carbon Dioxide Level 22 mmol/L (21-32) Anion Gap 13 (6-14) Blood Urea Nitrogen 13 mg/dL (7-20) Creatinine 1.1 mg/dL (0.6-1.0) Estimated GFR (Cockcroft-Gault) 62.2 BUN/Creatinine Ratio 12 (6-20) Glucose Level 125 mg/dL (70-99) Calcium Level 9.5 mg/dL (8.5-10.1) Magnesium Level 1.7 mg/dL (1.8-2.4) Total Bilirubin 1.5 mg/dL (0.2-1.0) Aspartate Amino Transf (AST/SGOT) 25 U/L (15-37) Alanine Aminotransferase (ALT/SGPT) 22 U/L (14-59) Alkaline Phosphatase 93 U/L (46-116) Troponin I High Sensitivity 11 ng/L (4-50) 14 ng/L (4-50) RB-Ifj-[id number]-Type Natriuretic Peptide 629 pg/mL (0-124) Total Protein 8.2 g/dL (6.4-8.2) Albumin 3.5 g/dL (3.4-5.0) Albumin/Globulin Ratio 0.7 (1.0-1.7) Lipase 21 U/L (73-393) Ethyl Alcohol Level < 10 mg/dL (0-10) Test 12/13/21 21:20 12/14/21 07:40 Troponin I High Sensitivity 18 ng/L (4-50) White Blood Count 15.0 x10^3/uL (4.0-11.0) Red Blood Count 4.23 x10^6/uL (3.50-5.40) Hemoglobin 11.8 g/dL (12.0-15.5) Hematocrit 35.8 % (36.0-47.0) Mean Corpuscular Volume 85 fL (79-100) Mean Corpuscular Hemoglobin 28 pg (25-35) Mean Corpuscular Hemoglobin Concent 33 g/dL (31-37) Red Cell Distribution Width 13.7 % (11.5-14.5) Platelet Count 104 x10^3/uL (140-400) Neutrophils (%) (Auto) 86 % (31-73) Lymphocytes (%) (Auto) 4 % (24-48) Monocytes (%) (Auto) 10 % (0-9) Eosinophils (%) (Auto) 0 % (0-3) Basophils (%) (Auto) 0 % (0-3) Neutrophils # (Auto) 12.9 x10^3/uL (1.8-7.7) Lymphocytes # (Auto) 0.6 x10^3/uL (1.0-4.8) Monocytes # (Auto) 1.5 x10^3/uL (0.0-1.1) Eosinophils # (Auto) 0.0 x10^3/uL (0.0-0.7) Basophils # (Auto) 0.0 x10^3/uL (0.0-0.2) Sodium Level 138 mmol/L (136-145) Potassium Level 3.5 mmol/L (3.5-5.1) Chloride Level 105 mmol/L (98-107) Carbon Dioxide Level 24 mmol/L (21-32) Anion Gap 9 (6-14) Blood Urea Nitrogen 10 mg/dL (7-20) Creatinine 0.9 mg/dL (0.6-1.0) Estimated GFR (Cockcroft-Gault) 78.4 BUN/Creatinine Ratio 11 (6-20) Glucose Level 127 mg/dL (70-99) Calcium Level 9.1 mg/dL (8.5-10.1) Total Bilirubin 1.0 mg/dL (0.2-1.0) Aspartate Amino Transf (AST/SGOT) 32 U/L (15-37) Alanine Aminotransferase (ALT/SGPT) 31 U/L (14-59) Alkaline Phosphatase 99 U/L (46-116) Total Protein 7.8 g/dL (6.4-8.2) Albumin 3.0 g/dL (3.4-5.0) Albumin/Globulin Ratio 0.6 (1.0-1.7) Assessment and Plan Assessmemt and Plan Problems Medical Problems: (1) Acute pyelonephritis Status: Acute (2) Leukocytosis Status: Acute (3) Nausea and vomiting Status: Acute (4) Sepsis Status: Acute Left pyelonephritis - IV rocephin, toradol, morphine for pain, aggressive IVF Sepsis - related to pyelo. empiric rocephin, IVF, trend WBC N/V/D - likely related to sepsis. no pain in right lower quadrant, does not appear to have gastroenteritis or appendicitis Hypokalemia - related to above, will replace IV Thrombocytopenia - likely sepsis related, will trend Abnormal breast masses - known outpatient, has outpatient breast ultrasound for densities Encourage p.o. intake Trend labs Home meds FEN - Regular diet PPX - ambulatory FULL CODE Dispo - inpatient Comment Review of Relevant I have reviewed the following items justin (where applicable) has been applied. Medications: Current Medications Medications (Trade) Dose Ordered Sig/Paulino Route PRN Reason Start Time Stop Time Status Last Admin Dose Admin Sodium Chloride 1,000 ml @ 1,000 mls/hr 1X ONCE IV 12/13/21 14:00 12/13/21 14:59 DC 12/13/21 14:26 Ondansetron HCl (Zofran) 4 mg 1X ONCE IVP 12/13/21 14:00 12/13/21 14:18 DC 12/13/21 14:26 Famotidine (Pepcid Vial) 20 mg 1X ONCE IVP 12/13/21 14:00 12/13/21 14:18 DC 12/13/21 14:26 Fentanyl Citrate (Fentanyl 2ml Vial) 50 mcg PRN Q15MIN PRN IV PAIN GREATER THAN 3/10 12/13/21 14:00 12/14/21 13:59 12/13/21 16:00 Iohexol (Omnipaque 300 Mg/ml) 75 ml 1X ONCE IV 12/13/21 14:15 12/13/21 14:18 DC 12/13/21 15:50 Ceftriaxone Sodium (Rocephin) 1 gm 1X ONCE IVP 12/13/21 16:30 12/13/21 16:31 DC 12/13/21 17:01 Magnesium Sulfate 50 ml @ 25 mls/hr 1X ONCE IV 12/13/21 19:30 12/13/21 21:29 DC 12/13/21 19:27 Potassium Chloride/Dextrose/ Sod Cl 1,000 ml @ 125 mls/hr Q8H IV 12/13/21 19:30 12/14/21 03:29 DC 12/13/21 19:22 Sodium Chloride 1,000 ml @ 100 mls/hr 1X ONCE IV 12/13/21 20:15 12/14/21 06:14 DC 12/13/21 20:15 Justifications for Admission Other Justification BELKIS IGLESIAS III DO December 14, 2021 08:51
[2021-12-14 11:00] VITALS: BP 124/74
[2021-12-14 15:00] VITALS: BP 105/68
[2021-12-14] MEDS: KETOROLAC 30 MG/ML VIAL. IVP PRN ×2 (15:40→22:21)
[2021-12-14] MEDS: cefTRIAXone IV Push 1 GM VIAL. IVP SCH (15:41)
[2021-12-14 19:00] VITALS: BP 135/82
[2021-12-14] MEDS: LACTOBACILLUS RHAMNOSUS GG 1 CAPSULE. PO SCH (21:07)
[2021-12-14 23:05] VITALS: BP 122/77
[2021-12-15 02:52] VITALS: BP 120/79
[2021-12-15 07:00] VITALS: BP 116/82
[2021-12-15] MEDS: LACTOBACILLUS RHAMNOSUS GG 1 CAPSULE. PO SCH ×2 (07:43→21:34)
[2021-12-15 11:00] VITALS: BP 116/74
[2021-12-15] MEDS: KETOROLAC 30 MG/ML VIAL. IVP PRN ×2 (14:56→21:35)
[2021-12-15 15:00] VITALS: BP 122/75
[2021-12-15] MEDS: cefTRIAXone IV Push 1 GM VIAL. IVP SCH (15:51)
--- NOTE | 2021-12-15 16:02 | PDOC ---
[employer] PROGRESS NOTE Date of Service DOS: DATE: 12/15/21 TIME: 16:00 Chief Complaint Chief Complaint Pyelonephritis Sepsis Leukocytosis Nausea vomiting diarrhea Hypokalemia Thrombocytopenia History of breast mass (worked up as outpatient) Continue empiric IV antibiotics Pending urine culture sensitivities Patient's chart, labs, images were reviewed and discussed with RN History of Present Illness History of Present Illness 12/15/2021 No acute events overnight. Patient seen examined bedside. Pain has improved. Wants to go home. Tolerating diet. Patient's chart, labs, images were reviewed and discussed with RN 12/14/2021 Patient seen exam She is resting with no apparent distress did awake briefly Discussed with RN Chart reviewed Vitals/I&O Vitals/I&O: Vital Signs Date Time Temp Pulse Resp B/P (MAP) Pulse Ox O2 Delivery O2 Flow Rate FiO2 12/15/21 15:00 97.3 68 18 122/75 (91) 95 Room Air 97.3 I & O 12/14/21 12/14/21 12/15/21 15:00 23:00 07:00 Intake Total 800 ml 1400 ml Output Total 1 ml Balance 800 ml 1399 ml Physical Exam General: No acute distress Heart: Regular rate Abdomen: Normal bowel sounds, Other (left flank tenderness) Extremities: No clubbing, No cyanosis, No edema, Normal pulses, No t enderness/swelling Skin: No rashes, No breakdown, No significant lesion Assessment and Plan Assessmemt and Plan Problems Medical Problems: (1) Acute pyelonephritis Status: Acute (2) Leukocytosis Status: Acute (3) Nausea and vomiting Status: Acute (4) Sepsis Status: Acute Comment Review of Relevant I have reviewed the following items justin (where applicable) has been applied. Medications: Current Medications Medications (Trade) Dose Ordered Sig/Paulino Route PRN Reason Start Time Stop Time Status Last Admin Dose Admin Lactobacillus Rhamnosus (Culturelle) 1 cap BID PO 12/14/21 21:00 12/15/21 07:43 Justifications for Admission Other Justification CATHY NASH MD December 15, 2021 16:02
[2021-12-15 19:00] VITALS: BP 116/68
[2021-12-15 23:17] VITALS: BP 126/81
[2021-12-16 03:00] VITALS: BP 125/70
[2021-12-16 07:00] VITALS: BP 105/68
[2021-12-16] MEDS: LACTOBACILLUS RHAMNOSUS GG 1 CAPSULE. PO SCH (07:57)
[2021-12-16] MEDS ORDERED: IBUP-1027 PO (09:48)
[2021-12-16] MEDS ORDERED: CEFD300C PO (09:50)
--- NOTE | 2021-12-16 09:50 | DISCH ---
DISCHARGE INSTRUCTIONS Condition on Discharge Condition on Discharge: Stable Activity After Discharge Activity Instructions for Disc: Activity as tolerated Exercise Instruction after Dis: Walk 30 min, 5 x per week Driving Instructions after Dis: Do not drive today Weight Bearing Status after Di: Full weight bearing Diet after Discharge Diet after Discharge: Cardiac Follow-Up Follow up with: PCP within 2 weeks of discharge CATHY NASH MD December 16, 2021 09:50
--- NOTE | 2021-12-16 10:52 | NUR ---
pt was discharged, IV removed and DC instructions discussed with pt. Pt escorted downstairs via tech to her ride
--- NOTE | 2021-12-19 12:25 | PDOC3 ---
[facility]-Discharge Summary Date of Admission: Date of Admission: December 13, 2021 Date of Discharge: Date of Discharge: December 15, 2021 Discharge Diagnosis: Discharge Diagnosis: Pyelonephritis Sepsis Leukocytosis Nausea vomiting diarrhea Hypokalemia Thrombocytopenia History of breast mass (worked up as outpatient) Hospital Course: Hospital Course: By day of discharge patient was clinically stable and afebrile. Pain is well controlled. Antibiotics transition to cefdinir and is pansensitive E. coli results final on urine cultures. Rest of hospital course was uneventful. 12/15/2021 No acute events overnight. Patient seen examined bedside. Pain has improved. Wants to go home. Tolerating diet. Patient's chart, labs, images were reviewed and discussed with RN 12/14/2021 Patient seen exam She is resting with no apparent distress did awake briefly Discussed with RN Chart reviewed 56yo female with no PMHx who comes to ED c/o left sided abdominal pain, nausea, vomiting and diarrhea. She has had cramping and sharp left flank pain radiating occasionally into her groin for the past 2 days. She has associated nausea and over the past 24 hours had 2 bouts of emesis and has been having diarrhea as well. She c/o dysuria and subjective fever/chills. Labs with WBC 19.1, Hb 12.5, platelets 125, NA 136, K3.2, BUN 13, CR 1.1, glucose 125, calcium 9.5, magnesium 1.7, bilirubin 1.5, AST 25, ALT 22, alkaline phosphatase 93, albumin 3.5, lipase 21, high-sensitivity troponins were 11 and 14, NT proBNP 629, urinalysis large leuk esterase, a UDS positive for cannabinoids, rapid COVID-19 negative, rapid influenza negative. CT abdomen pelvis concerning for left-sided pyelonephritis and 2.5 cm right adrenal lesion Noted as well as multiple bilateral breast masses. Disposition: Disposition/Orders: D/C to Home Activity: Activity: Resume previous activity Diet: Diet: Regular Medications: Home Meds Active Scripts Cefdinir (CEFDINIR) 300 Mg Capsule, 1 CAP PO BID for Pyelnephritis for 5 Days, #10 CAP Prov:CATHY NASH MD 12/16/21 Ibuprofen (IBUPROFEN) 400 Mg Tablet, 400 MG PO PRN Q6HRS PRN for INFLAMMATION for 3 Days, #12 TAB Prov:CATHY NASH MD 12/16/21 Scheduled Cefdinir (Cefdinir), 1 CAP PO BID Scheduled PRN Ibuprofen (Ibuprofen), 400 MG PO PRN Q6HRS PRN for INFLAMMATION Total Time: Total Time: Total time spent was 32 minutes in preparing scripts, discharge planning with [facility] and RN and preparing this discharge summary Patient seen and examined on day of discharge. No acute abnormal findings. Justicifation of Admission Dx: Justifications for Admission: Justification of Admission Dx: Yes Sepsis: Infection CATHY NASH MD December 19, 2021 12:25
== END 2021-12-16 12:05 | disposition home or self-care (01) | DRG 872 ==
LOC: ER 11:02 → 4 NORTH 19:39
PROVIDERS: ADMIT Internal Medicine; ATTEND Internal Medicine
DX: A41.9 Sepsis, unspecified organism (principal); N10 Acute pyelonephritis; E87.6 Hypokalemia; D69.6 Thrombocytopenia, unspecified; B96.20 Unspecified Escherichia coli [E. coli] as the cause of diseases classified elsewhere; E27.9 Disorder of adrenal gland, unspecified; Z87.891 Personal history of nicotine dependence
CPT/HCPCS: 36415; 74177; 80053; 80307; 81001; 83690; 83735; 83880; 84484; 85007; 85025; 87077; 87086; 87186; 87428; 96361; 96365; 96368; 96375; G0480; J0696; J1885; J2405; J3010; J3475; J3480; J3490; J7030; Q9967; 99285-25; G0378